=== PATIENT | female | born 1975 | race African-American/Black ===

== ENCOUNTER → 2019-07-10 09:34 | Outpatient (CLI) | payer OTHER, SELFPAY ==
--- NOTE | 2019-07-10 | DI.MG.S_ITS ---
BILATERAL DIGITAL DIAGNOSTIC MAMMOGRAM 3D/2D: 07/10/2019 CLINICAL: Baseline exam. Right breast lump. No prior exams were available for comparison. The tissue of both breasts is heterogeneously dense. This may lower the sensitivity of mammography. There is a questionable 6 mm oval equal density asymmetry with an obscured margin in the right breast at 1 o'clock middle depth. This is not seen in additional views. This possibly correlates as palpated. No other significant masses, calcifications, or other findings are seen in either breast. Specifically, no other suspicious finding to correspond to the patient's palpable abnormality. IMPRESSION: INCOMPLETE: NEEDS ADDITIONAL IMAGING EVALUATION The 6 mm oval equal density asymmetry in the right breast likely represents a cyst but is indeterminate. An ultrasound is recommended for further evaluation of this structure, and the palpable are in question. This was performed immediately following this exam. This exam was interpreted at Station ID: [id number]. NOTE: For mammograms, a report in lay terms will be sent to the patient. Approximately 15% of breast malignancies will not be visualized mammographically. In the management of a palpable breast mass, a negative mammogram must not discourage biopsy of a clinically suspicious lesion. Electronically Signed By: Kell toure/:07/10/2019 11:10:10 ACR BI-RADS Category 0: Incomplete [id number]
--- NOTE | 2019-07-10 | DI.US.S_ITS ---
ULTRASOUND OF RIGHT BREAST: 07/10/2019 CLINICAL: Palpable right breast lump. Comparison is made to exam dated: 07/10/2019 [facility]. Color flow and real-time ultrasound of the right breast were performed. Hale scale images of the real-time examination were reviewed. There are two benign oval simple cysts amidst dense fibroglandular tissue in the right breast superior medial quadrant middle depth. These measure 8 mm and 10 mm, and may correlate as palpated and do correlate with mammography findings. Color flow imaging demonstrates that there is no vascularity present. No other suspicious sonographic findings in the area of palpable abnormality. IMPRESSION: BENIGN There is no sonographic evidence of malignancy. The two oval cysts in the right breast are consistent with simple cysts and are benign. Return to annual mammogram screening schedule is recommended. Findings and recommendations were conveyed to the patient at time of exam. This exam was interpreted at Station ID: [id number]. Electronically Signed By: Klel toure/:07/10/2019 11:13:47 letter sent: Normal Exam Ultrasound BI-RADS: 2 Benign
== END ==
PROVIDERS: Referring Provider Physician Assistant Medical; Visit Provider Physician Assistant Medical
DX: R92.8 Other abnormal and inconclusive findings on diagnostic imaging of breast (principal); N60.01 Solitary cyst of right breast
CPT/HCPCS: 76642; 77066; G0279